=== PATIENT | male | born 1995 | race Caucasian/White ===

== ENCOUNTER 2018-07-03 12:06 | Emergency (ER) | payer OTHER ==
[2018-07-03] MEDS ORDERED: Ketorolac 60 MG/2 ML SDV IM ONE (12:24)
--- NOTE | 2018-07-03 12:29 | EDM.PDOC ---
ED HPI GENERAL MEDICAL PROBLEM - General Chief Complaint: Lower Extremity Injury/Pain Stated Complaint: INJURED KNEE Time Seen by Provider: 07/03/18 12:07 Source of Information: Reports: Patient History Limitations: Reports: No Limitations - History of Present Illness INITIAL COMMENTS - FREE TEXT/NARRATIVE: HISTORY AND PHYSICAL: History of present illness: Patient is a 22-year-old male who presents to the emergency room today with concerns of left knee pain. He states he was crossing his legs and trying to go into a seated position when he felt his leg hyperextend. Since that time has been sore with weightbearing and ambulation. He states he has had this a few times in the past where he is "overstretched the ligaments". He denies any fever , chills, chest pain, shortness of breath or cough. Denies any GI or symptoms. He has no numbness or tingling of the affected extremity. Has had no previous injury, trauma or surgeries of the affected extremity. Review of systems: As per history of present illness and below otherwise all systems reviewed and negative. Past medical history: As per history of present illness and as reviewed below otherwise noncontributory. Surgical history: As per history of present illness and as reviewed below otherwise noncontributory. Social history: See social history for further information Family history: As per history of present illness and as reviewed below otherwise noncontributory. Physical exam: General: Well-developed and well-nourished 22-year-old male. Alert and oriented. Nontoxic appearing and in no acute distress. HEENT: Atraumatic, normocephalic, pupils equal and reactive bilaterally, negative for conjunctival pallor or scleral icterus, mucous membranes moist, trachea midline. No drooling or trismus noted. No meningeal signs. No hot potato voice noted. Lungs: Clear to auscultation, breath sounds equal bilaterally, chest nontender. Heart: S1S2, regular rate and rhythm without overt murmur Skin: Intact, warm, dry. No lesions or rashes noted. Extremities: Atraumatic, moves all extremities per self, has no knee instability , negative drawer test, strong pedal pulse negative for cords or calf pain. Neurovascular unremarkable. Neuro: Awake, alert, oriented. Cranial nerves II through XII unremarkable. Cerebellum unremarkable. Motor and sensory unremarkable throughout. Exam nonfocal. Notes: X-ray shows no significant findings. Patient already has a brace from home on. We'll give crutches. Encouraged him to follow-up with his primary care provider or the orthopedic provider. Supportive care measures were reviewed and discussed. Voices understanding and is agreeable to plan of care. Denies any further questions or concerns at this time. Diagnostics: X-ray Therapeutics: Toradol IM, crutches Prescription: None Impression: Left knee injury Plan: 1. Rest, ice, elevate the affected extremity. Please crutches as directed. 2. Tylenol and/or Ibuprofen as needed for pain management. 3. Follow up with the Orthopedic provider as we discussed. Return to the ED as needed and as discussed. Definitive disposition and diagnosis as appropriate pending reevaluation and review of above. left knee Pain Score (Numeric/FACES): 8 - Related Data Allergies Allergy/AdvReac Type Severity Reaction Status Date / Time No Known Allergies Allergy Verified 07/03/18 12:17 Home Meds: Home Meds . [No Known Home Meds] 07/03/18 [History] Past Medical History - Past Health History Medical/Surgical History: Denies Medical/Surgical History - Infectious Disease History Infectious Disease History: Reports: None Social & Family History - Family History Family Medical History: Noncontributory - Tobacco Use Smoking Status *Q: Current Every Day Smoker Years of Tobacco use: 6 Packs/Tins Daily: 1 - Alcohol Use Days Per Week of Alcohol Use: 7 Number of Drinks Per Day: 2 Total Drinks Per Week: 14 - Recreational Drug Use Recreational Drug Use: No Review of Systems - Review of Systems Review Of Systems: ROS reveals no pertinent complaints other than HPI. ED EXAM, GENERAL - Physical Exam Exam: See Below (See dictation) Course - Vital Signs Last Recorded V/S: Last Vital Signs Temp 99.2 F 07/03/18 12:17 Pulse 102 H 07/03/18 12:17 Resp 20 07/03/18 12:17 BP 135/52 L 07/03/18 12:17 Pulse Ox 98 07/03/18 12:17 - Orders/Labs/Meds Orders: Active Orders 24 hr Category Date Time Status Knee 3V Lt [CR] Stat Exams 07/03/18 12:24 Taken DME for Discharge [COMM] Stat Oth 07/03/18 12:24 Ordered Meds: Medications Discontinued Medications Generic Name Dose Route Start Last Admin Trade Name Ren PRN Reason Stop Dose Admin Ketorolac Tromethamine 60 mg 07/03/18 12:24 07/03/18 12:30 Toradol IM 07/03/18 12:25 60 mg ONETIME ONE Administration Departure - Departure Time of Disposition: 12:28 Disposition: Home, Self-Care 01 Clinical Impression: Left knee injury Qualifiers: Encounter type: initial encounter Qualified Code(s): S89.92XA - Unspecified injury of left lower leg, initial encounter - Discharge Information Instructions: Knee Sprain, Adult, [id number] Forms: ED Department Discharge Additional Instructions: The following information is given to patients seen in the emergency department who are being discharged to home. This information is to outline your options for follow-up care. We provide all patients seen in our emergency department with a follow-up referral. The need for follow-up, as well as the timing and circumstances, are variable depending upon the specifics of your emergency department visit. If you don't have a primary care physician on staff, we will provide you with a referral. We always advise you to contact your personal physician following an emergency department visit to inform them of the circumstance of the visit and for follow-up with them and/or the need for any referrals to a consulting specialist. The emergency department will also refer you to a specialist when appropriate. This referral assures that you have the opportunity for follow-up care with a specialist. All of these measure are taken in an effort to provide you with optimal care, which includes your follow-up. Under all circumstances we always encourage you to contact your private physician who remains a resource for coordinating your care. When calling for follow-up care, please make the office aware that this follow-up is from your recent emergency room visit. If for any reason you are refused follow-up, please contact the [facility] Emergency Department at and asked to speak to the emergency department charge nurse. [facility] [address] [place] [id number] [address] [facility] [address], [address] [place] [address] 1. Rest, ice, elevate the affected extremity. Please use crutches as directed. 2. Tylenol and/or Ibuprofen as needed for pain management. 3. Follow up with the Orthopedic provider as we discussed. Return to the ED as needed and as discussed. - My Orders Last 24 Hours: My Active Orders 07/03/18 12:24 Knee 3V Lt [CR] Stat DME for Discharge [COMM] Stat - Assessment/Plan Last 24 Hours: My Active Orders 07/03/18 12:24 Knee 3V Lt [CR] Stat DME for Discharge [COMM] Stat
--- NOTE | 2018-07-03 13:37 | CR ---
INDICATION: pain HISTORY: Knee pain. COMPARISON: None. TECHNIQUE: Left knee, 3 views. FINDINGS: There is no acute fracture identified at the left knee. No depression of either tibial plateau. There is spurring present along the lateral cortex of the left proximal tibia, which does not appear acute. Small left suprapatellar joint effusion. No patellar subluxation or tilt on the [employer]sunrise radiograph. IMPRESSION: No acute bone abnormality. Dictated by Dalton Uribe MD @ 07/03/2018 1:35:40 PM Dictated by: Dalton Uribe MD @ 07/03/2018 13:35:48 (Electronically Signed)
== END 2018-07-03 13:45 | disposition home or self-care (01) ==
LOC: MW.ED 12:06
DX: S89.92XA Unspecified injury of left lower leg, initial encounter (principal); F17.210 Nicotine dependence, cigarettes, uncomplicated; X50.9XXA Other and unspecified overexertion or strenuous movements or postures, initial encounter
CPT/HCPCS: 73562; 96372; 99283; J1885

== ENCOUNTER 2018-11-09 08:41 | Emergency (ER) | payer OTHER ==
[2018-11-09] MEDS ORDERED: Albuterol/Ipratropium 3.0-0.5 MG/3 ML Neb Soln NEB ONE (08:44)
--- NOTE | 2018-11-09 08:57 | EDM.PDOC ---
ED HPI GENERAL MEDICAL PROBLEM - General Chief Complaint: Respiratory Problem Stated Complaint: TROUBLE BREATHING Time Seen by Provider: 11/09/18 08:57 Source of Information: Reports: Patient - History of Present Illness INITIAL COMMENTS - FREE TEXT/NARRATIVE: HISTORY AND PHYSICAL: History of present illness: Patient has had a history of sports induced asthma, has not visited asthma since his teenage years and significant improvement after moving from [facility] to clean her air hence he does not have any medication available as it is been several years since his last exacerbation No fever nausea vomiting chills sweats no chest pain headache dizziness palpitation no bowel or urine symptoms he complains of shortness of breath and wheeze chest tightness Review of systems: As per history of present illness and below otherwise all systems reviewed and negative. Past medical history: As per history of present illness and as reviewed below otherwise noncontributory. Surgical history: As per history of present illness and as reviewed below otherwise noncontributory. Social history: No reported history of drug or alcohol abuse. Family history: As per history of present illness and as reviewed below otherwise noncontributory . Physical exam: HEENT: Atraumatic, normocephalic, pupils reactive, negative for conjunctival pallor or scleral icterus, mucous membranes moist, throat clear, neck supple, nontender, trachea midline. Lungs: Clear to auscultation, breath sounds equal bilaterally, chest nontender. post DuoNeb and Solu-Medrol tired to treatment restricted air movement Heart: S1S2, regular, negative for clicks, rubs, or JVD. Abdomen: Soft, nondistended, nontender. Negative for masses or hepatosplenomegaly. Negative for costovertebral tenderness. Pelvis: Stable nontender. Genitourinary: Deferred. Rectal: Deferred. Extremities: Atraumatic, negative for cords or calf pain. Neurovascular unremarkable. Neuro: Awake, alert, oriented. Cranial nerves II through XII unremarkable. Cerebellum unremarkable. Motor and sensory unremarkable throughout. Exam nonfocal. Diagnostics: [] test 1 view Therapeutics: [] DuoNeb Solu-Medrol 125 mg IM Z-Rony Prednisone HFA Impression: [] asthma exacerbation -Improved/resolved Definitive disposition and diagnosis as appropriate pending reevaluation and review of above. back Pain Score (Numeric/FACES): 8 - Related Data Allergies Allergy/AdvReac Type Severity Reaction Status Date / Time No Known Allergies Allergy Verified 11/09/18 08:44 Home Meds: Home Meds . [No Known Home Meds] 07/03/18 [History] Past Medical History - Past Health History Medical/Surgical History: Denies Medical/Surgical History Respiratory History: Reports: Asthma - Infectious Disease History Infectious Disease History: Reports: None Social & Family History - Family History Family Medical History: Noncontributory - Tobacco Use Smoking Status *Q: Current Every Day Smoker Years of Tobacco use: 8 Packs/Tins Daily: 0 - Alcohol Use Days Per Week of Alcohol Use: 3 Number of Drinks Per Day: 4 Total Drinks Per Week: 12 - Recreational Drug Use Recreational Drug Use: No ED ROS GENERAL - Review of Systems Review Of Systems: See Below ED EXAM, GENERAL - Physical Exam Exam: See Below Course - Vital Signs Last Recorded V/S: Last Vital Signs Temp 96.6 F 11/09/18 08:42 Pulse 91 11/09/18 08:42 Resp 26 H 11/09/18 08:42 BP 123/79 11/09/18 08:42 Pulse Ox 95 11/09/18 08:44 - Orders/Labs/Meds Orders: Active Orders 24 hr Category Date Time Status RT Aerosol Therapy [RC] ASDIRECTED Care 11/09/18 08:44 Active Meds: Medications Discontinued Medications Generic Name Dose Route Start Last Admin Trade Name Ren PRN Reason Stop Dose Admin Albuterol/Ipratropium 3 ml 11/09/18 08:44 11/09/18 08:53 Duoneb 3.0-0.5 Mg/3 Ml NEB 11/09/18 08:45 3 ml ONETIME ONE Administration Methylprednisolone Sodium Succinate 125 mg 11/09/18 09:00 11/09/18 09:12 Solu-Medrol IM 11/09/18 09:01 125 mg ONETIME ONE Administration Departure - Departure Time of Disposition: 09:44 Disposition: Home, Self-Care 01 Condition: Good Clinical Impression: Asthma exacerbation - Discharge Information Referrals: PCP,Unknown [Primary Care Provider] - Forms: ED Department Discharge Additional Instructions: Medication as prescribed Return if symptoms persist or worsen Follow-up with primary care in 2 weeks sooner as needed [facility] [address] [place] [id number] The following information is given to patients seen in the emergency department who are being discharged to home. This information is to outline your options for follow-up care. We provide all patients seen in our emergency department with a follow-up referral. The need for follow-up, as well as the timing and circumstances, are variable depending upon the specifics of your emergency department visit. If you don't have a primary care physician on staff, we will provide you with a referral. We always advise you to contact your personal physician following an emergency department visit to inform them of the circumstance of the visit and for follow-up with them and/or the need for any referrals to a consulting specialist. The emergency department will also refer you to a specialist when appropriate. This referral assures that you have the opportunity for follow-up care with a specialist. All of these measure are taken in an effort to provide you with optimal care, which includes your follow-up. Under all circumstances we always encourage you to contact your private physician who remains a resource for coordinating your care. When calling for follow-up care, please make the office aware that this follow-up is from your recent emergency room visit. If for any reason you are refused follow-up, please contact the [facility] emergency department at and asked to speak to the emergency department charge nurse. - My Orders Last 24 Hours: My Active Orders 11/09/18 08:44 RT Aerosol Therapy [RC] ASDIRECTED - Assessment/Plan Last 24 Hours: My Active Orders 11/09/18 08:44 RT Aerosol Therapy [RC] ASDIRECTED
[2018-11-09] MEDS ORDERED: methylPREDNISolone Sodium Succinate 125 MG/2 ML SDV IM ONE (09:00)
--- NOTE | 2018-11-09 09:28 | CR ---
EXAMINATION: Portable chest radiograph. HISTORY: Shortness of breath. FINDINGS: The trachea is midline. The cardiomediastinal silhouette is within normal limits. No pulmonary infiltrates, effusions or pneumothorax. Osseous structures appear unremarkable. IMPRESSION: No acute cardiopulmonary process.
== END 2018-11-09 09:56 | disposition home or self-care (01) ==
LOC: MW.ED 08:41
DX: J45.901 Unspecified asthma with (acute) exacerbation (principal); F17.210 Nicotine dependence, cigarettes, uncomplicated
CPT/HCPCS: 71045; 94640; 99284; J2930; 99283; J7620-GY

== ENCOUNTER 2019-05-26 13:30 | Emergency (ER) | payer SELFPAY ==
[2019-05-26] MEDS ORDERED: Albuterol/Ipratropium 3.0-0.5 MG/3 ML Neb Soln ONE (13:32)
[2019-05-26] MEDS ORDERED: methylPREDNISolone Sodium Succinate 125 MG/2 ML SDV IVPUSH ONE (13:37)
[2019-05-26] MEDS ORDERED: Albuterol/Ipratropium 3.0-0.5 MG/3 ML Neb Soln NEB ONE ×2 (13:37→13:46)
--- NOTE | 2019-05-26 13:39 | EDM.PDOC ---
ED HPI GENERAL MEDICAL PROBLEM - General Chief Complaint: Respiratory Problem Stated Complaint: BREATHING PROBLEMS Time Seen by Provider: 05/26/19 13:35 Source of Information: Reports: Patient History Limitations: Reports: No Limitations - History of Present Illness INITIAL COMMENTS - FREE TEXT/NARRATIVE: HISTORY AND PHYSICAL: History of present illness: patient is a 23-year-old male who presents to the emergency room today with complaints of shortness of breath. He states symptoms have been progressively getting worse over the past 2 days. He did use his albuterol inhaler LEAF STAMPER but felt it did not improve his symptoms, hence presenting to the ED. Patient denies any fever, chills, headache, change in vision, syncope or near syncope. Denies any GI or symptoms. Patient has been eating and drinking appropriately. Review of systems: As per history of present illness and below otherwise all systems reviewed and negative. Past medical history: As per history of present illness and as reviewed below otherwise noncontributory. Surgical history: As per history of present illness and as reviewed below otherwise noncontributory. Social history: See social history for further information Family history: As per history of present illness and as reviewed below otherwise noncontributory. Physical exam: General: Well developed and well nourished 23 year old male. A&O x 3. Nontoxic in appearance and in no acute distress. HEENT: Atraumatic, normocephalic, pupils equal and reactive bilaterally, negative for conjunctival pallor or scleral icterus, mucous membranes moist, TMs normal bilaterally, throat clear, neck supple, nontender, trachea midline. No drooling or trismus noted. No meningeal signs. No hot potato voice noted. Lungs: expiratory wheezing bilaterally, breath sounds equal bilaterally, chest nontender. Dry nonproductive cough noted. Heart: S1S2, regular rate and rhythm without overt murmur Abdomen: Soft, nondistended, nontender. Negative for masses or hepatosplenomegaly. Negative for costovertebral tenderness. Pelvis: Stable nontender. Skin: Intact, warm, dry. No lesions or rashes noted. Extremities: Atraumatic, moves all extremities per self without difficulty or deficits, negative for cords or calf pain. Neurovascular unremarkable. Neuro: Awake, alert, oriented. Cranial nerves II through XII unremarkable. Cerebellum unremarkable. Motor and sensory unremarkable throughout. Exam nonfocal. Notes: Lung sounds have improved since the breathing treatments. VSS. Medication and supportive care measures were reviewed and discussed. Signs and symptoms that would prompt him to return to the ED as needed as discussed. Voices understanding and is agreeable to plan of care. Denies any further questions or concerns at this time. Diagnostics: CBC, CXR Therapeutics: Marcelino Aguilar, Solu-Medrol Prescription: Prednisone Impression: Asthma exacerbation Plan: 1. Stop smoking. 2. Take the medications as prescribed. Prednisone 20mg twice daily x 4 days. Use your inhaler as needed. May use the nebulizer once every 4 hours as needed. 3. Follow up with your primary care provider as we discussed. Return to the ED as needed as discussed. Definitive disposition and diagnosis as appropriate pending reevaluation and review of above. Onset: Today Chest Pain Score (Numeric/FACES): 5 - Related Data Allergies Allergy/AdvReac Type Severity Reaction Status Date / Time No Known Allergies Allergy Verified 05/26/19 13:32 Home Meds: Home Meds Albuterol Sulfate [Albuterol Sulfate Hfa] 2 puff PO ASDIRECTED PRN 05/26/19 [ History] Albuterol/Ipratropium [DuoNeb 3.0-0.5 MG/3 ML] 1 ampule INH Q4HR PRN #1 box 11/05 [Rx] Azithromycin [Zithromax] 1 dose PO DAILY 5 Days #6 tab 05/26/19 [Rx] predniSONE [Prednisone] 20 mg PO BID 4 Days #8 tablet 05/26/19 [Rx] Past Medical History - Past Health History Medical/Surgical History: Denies Medical/Surgical History Respiratory History: Reports: Asthma - Infectious Disease History Infectious Disease History: Reports: None Social & Family History - Family History Family Medical History: Noncontributory ED ROS GENERAL - Review of Systems Review Of Systems: Comprehensive ROS is negative, except as noted in HPI. ED EXAM, GENERAL - Physical Exam Exam: See Below (See dictation) Course - Vital Signs Last Recorded V/S: Last Vital Signs Temp 98.3 F 05/26/19 16:16 Pulse 85 05/26/19 16:16 Resp 16 05/26/19 16:16 BP 136/71 05/26/19 16:16 Pulse Ox 97 05/26/19 16:16 - Orders/Labs/Meds Orders: Active Orders 24 hr Category Date Time Status RT Aerosol Therapy [RC] ASDIRECTED Care 05/26/19 13:37 Active RT Aerosol Therapy [RC] ASDIRECTED Care 05/26/19 13:46 Active Labs: Laboratory Tests 05/26/19 Range/Units 13:40 WBC 8.72 (4.0-11.0) K/uL RBC 5.11 (4.50-5.90) M/uL Hgb 16.0 (13.0-17.0) g/dL Hct 46.2 (38.0-50.0) % MCV 90.4 (80.0-98.0) fL MCH 31.3 (27.0-32.0) pg MCHC 34.6 (31.0-37.0) g/dL RDW Std Deviation 41.9 (28.0-62.0) fl RDW Coeff of Jose 13 (11.0-15.0) % Plt Count 297 (150-400) K/uL MPV 10.40 (7.40-12.00) fL Neut % (Auto) 54.2 (48.0-80.0) % Lymph % (Auto) 22.9 (16.0-40.0) % Dade % (Auto) 8.0 (0.0-15.0) % Eos % (Auto) 13.9 H (0.0-7.0) % Baso % (Auto) 1.0 (0.0-1.5) % Neut # (Auto) 4.7 (1.4-5.7) K/uL Lymph # (Auto) 2.0 (0.6-2.4) K/uL Dade # (Auto) 0.7 (0.0-0.8) K/uL Eos # (Auto) 1.2 H (0.0-0.7) K/uL Baso # (Auto) 0.1 (0.0-0.1) K/uL Nucleated RBC % 0.0 /100WBC Nucleated RBCs # 0 K/uL Meds: Medications Discontinued Medications Generic Name Dose Route Start Last Admin Trade Name Freq PRN Reason Stop Dose Admin Albuterol/Ipratropium Confirm 05/26/19 13:32 05/26/19 13:37 Duoneb 3.0-0.5 Mg/3 Ml Administered 05/26/19 13:33 Not Given Dose 3 ml .ROUTE .STK-MED ONE Albuterol/Ipratropium 3 ml 05/26/19 13:37 05/26/19 13:54 Duoneb 3.0-0.5 Mg/3 Ml NEB 05/26/19 13:38 3 ml ONETIME ONE Administration Albuterol/Ipratropium 3 ml 05/26/19 13:46 05/26/19 14:35 Duoneb 3.0-0.5 Mg/3 Ml NEB 05/26/19 13:47 3 ml ONETIME ONE Administration Methylprednisolone Sodium Succinate 125 mg 05/26/19 13:37 05/26/19 13:54 Solu-Medrol IVPUSH 05/26/19 13:38 125 mg ONETIME ONE Administration Departure - Departure Time of Disposition: 14:56 Disposition: Home, Self-Care 01 Clinical Impression: Asthma exacerbation Qualifiers: Asthma severity: mild Asthma persistence: persistent Qualified Code(s): J45.31 - Mild persistent asthma with (acute) exacerbation - Discharge Information Prescriptions: Albuterol/Ipratropium [DuoNeb 3.0-0.5 MG/3 ML] 1 ampule INH Q4HR PRN #1 box PRN Reason: Dyspnea Azithromycin [Zithromax] 1 dose PO DAILY 5 Days #6 tab predniSONE [Prednisone] 20 mg PO BID 4 Days #8 tablet Instructions: Asthma, Adult, [id number] Referrals: PCP,None [Primary Care Provider] - Forms: ED Department Discharge Additional Instructions: The following information is given to patients seen in the emergency department who are being discharged to home. This information is to outline your options for follow-up care. We provide all patients seen in our emergency department with a follow-up referral. The need for follow-up, as well as the timing and circumstances, are variable depending upon the specifics of your emergency department visit. If you don't have a primary care physician on staff, we will provide you with a referral. We always advise you to contact your personal physician following an emergency department visit to inform them of the circumstance of the visit and for follow-up with them and/or the need for any referrals to a consulting specialist. The emergency department will also refer you to a specialist when appropriate. This referral assures that you have the opportunity for follow-up care with a specialist. All of these measure are taken in an effort to provide you with optimal care, which includes your follow-up. Under all circumstances we always encourage you to contact your private physician who remains a resource for coordinating your care. When calling for follow-up care, please make the office aware that this follow-up is from your recent emergency room visit. If for any reason you are refused follow-up, please contact the [facility] Emergency Department at and asked to speak to the emergency department charge nurse. [facility] [address], [place] [address] [facility] [address] [place] [id number] 1. Stop smoking. 2. Take the medications as prescribed. Prednisone 20mg twice daily x 4 days. Use your inhaler as needed. May use the nebulizer once every 4 hours as needed. 3. Follow up with your primary care provider as we discussed. Return to the ED as needed as discussed. Sepsis Event Note - Evaluation Sepsis Screening Result: No Definite Risk - Focused Exam Vital Signs: Vital Signs Temp Pulse Resp BP Pulse Ox 05/26/19 16:16 98.3 F 85 16 136/71 97 05/26/19 15:43 98.5 F 101 H 17 118/63 94 L 05/26/19 13:33 97.6 F 108 H 20 140/75 94 L Date Exam was Performed: 05/26/19 Time Exam was Performed: 16:36 - My Orders Last 24 Hours: My Active Orders 05/26/19 13:37 RT Aerosol Therapy [RC] ASDIRECTED 05/26/19 13:46 RT Aerosol Therapy [RC] ASDIRECTED - Assessment/Plan Last 24 Hours: My Active Orders 05/26/19 13:37 RT Aerosol Therapy [RC] ASDIRECTED 05/26/19 13:46 RT Aerosol Therapy [RC] ASDIRECTED
--- NOTE | 2019-05-26 16:30 | CR ---
Chest: 2 views of the chest were obtained. Comparison: Prior chest x-ray of 11/09/18. Heart size and mediastinum are within normal limits. Lungs are clear. Bony structures are unremarkable. Impression: 1. Nothing acute is seen on 2 view chest x-ray. Diagnostic code #1 This report was dictated in [place] Standard Time
== END 2019-05-26 16:19 | disposition home or self-care (01) ==
LOC: MW.ED 13:30
DX: J45.31 Mild persistent asthma with (acute) exacerbation (principal)
CPT/HCPCS: 36415; 71046; 85025; 96374; 99285; J2930; 99283; J7620-GY

== ENCOUNTER 2022-10-19 10:12 | Emergency (ER) | payer MEDICAID, OTHER | END 2022-10-19 11:54 | disposition home or self-care (01) | LOC: MW.ED 10:12 | DX: Z76.0 Encounter for issue of repeat prescription (principal); J45.31 Mild persistent asthma with (acute) exacerbation; Z79.899 Other long term (current) drug therapy | CPT/HCPCS: 71046; 71046-26; 99283 ==

== ENCOUNTER 2023-01-22 19:45 | Emergency (ER) | payer MEDICAID | END 2023-01-22 21:41 | disposition home or self-care (01) | LOC: MW.ED 19:45 | DX: Z02.89 Encounter for other administrative examinations (principal); Z76.0 Encounter for issue of repeat prescription | CPT/HCPCS: 99281; 99283 ==

== ENCOUNTER 2023-11-09 03:15 | Emergency (ER) | payer SELFPAY ==
[2023-11-09] MEDS: Albuterol 8 GM Inhaler INH ONE (04:06)
== END 2023-11-09 04:14 | disposition home or self-care (01) ==
LOC: MW.ED 03:15
DX: J45.901 Unspecified asthma with (acute) exacerbation (principal); Z75.8 Other problems related to medical facilities and other health care; Z79.899 Other long term (current) drug therapy
CPT/HCPCS: 99284; A9270